=== PATIENT | male | born 1985 | race Caucasian/White ===

== ENCOUNTER 2019-12-10 11:42 | Emergency (ER) | payer OTHER ==
[2019-12-10] MEDS ORDERED: MORPHINE SULFATE 4 MG/ML SYRINGE IV STA (12:45)
[2019-12-10] MEDS ORDERED: KETOROLAC 30 MG/ML 1 ML VIAL IVP STA (12:45)
[2019-12-10] MEDS ORDERED: ONDANSETRON 4 MG/2 ML VIAL IVP STA (12:45)
[2019-12-10] MEDS ORDERED: SODIUM CHLORIDE 0.9% 1,000 ML IV STA ×2 (12:45)
[2019-12-10 13:08] LABS: Appearance,Urine Clear (Clear); Bilirubin,Urine Negative (Negative); Blood,Urine Moderate (Negative); Color,Urine Yellow; Glucose,Urine (UA) Negative (Negative); Ketones,Urine Negative (Negative); Leukocyte Esterase,Urine Negative (Negative); Mucus,Urine Rare /hpf; Nitrite,Urine Negative (Negative); Protein,Urine Negative (Negative); RBC,Urine 19 /hpf (0-5); Specific Gravity,Urine 1.021 (1.001-1.035); Squamous Epithelial Cell,Urine 1 /hpf (0-4); Urobilinogen,Urine <2.0 mg/dL (<2.0); WBC,Urine 1 /hpf (0-5)
[2019-12-10 13:09] LABS: Basophils % (A) 0 %; Eosinophils % (A) 0 %; HCT 46.2 % (39.0-53.0); HGB 15.3 gm/dL (13.0-17.5); Lymphocytes % (A) 12 %; MCH 28.4 pg (25.0-35.0); Mean Platelet Volume 7.5; Monocytes # (A) 0.3 k/uL (0-1.0); Monocytes % (A) 3 %; Neutrophils # (A) 6.9 k/uL (1.3-7.7); Neutrophils % (A) 83 %; Platelet Count 216 k/uL (150-450); RBC 5.37 m/uL (4.30-5.90); RDW 13.3 % (11.5-15.5); WBC 8.2 k/uL (3.8-10.6)
[2019-12-10 13:13] LABS: INR 0.9 (<1.2); Partial Thromboplastin Time 24.3 sec (22.0-30.0); Prothrombin Time 9.6 sec (9.0-12.0)
[2019-12-10 13:17] LABS: ALT 50 U/L (4-49); AST 35 U/L (17-59); African American GFR (CKD) >90 (>60 ml/min/1.73 sqM); Albumin 4.6 g/dL (3.5-5.0); Alkaline Phosphatase 98 U/L (38-126); Amylase 67 U/L (30-110); Anion Gap 7 mmol/L; Blood Urea Nitrogen 13 mg/dL (9-20); Calcium 9.4 mg/dL (8.4-10.2); Carbon Dioxide 28 mmol/L (22-30); Chloride 102 mmol/L (98-107); Glucose 111 mg/dL (74-99); Non-African American GFR(CKD) >90 (>60 ml/min/1.73 sqM); Potassium 5.1 mmol/L (3.5-5.1); Sodium 137 mmol/L (137-145); Total Bilirubin 0.5 mg/dL (0.2-1.3); Total Protein 7.7 g/dL (6.3-8.2)
--- NOTE | 2019-12-10 13:21 | ED ---
Abdominal Pain HPI - General Chief Complaint: Abdominal Pain Stated Complaint: poss kidney stone Time Seen by Provider: 12/10/19 12:38 Source: patient, RN notes reviewed, old records reviewed Mode of arrival: ambulatory Limitations: no limitations - History of Present Illness Initial Comments: 34-year-old male presents emergency department today for evaluation for concern for right-sided flank pain, frequent urination and pain for the past day. Sympt oms started this morning when getting to work. He's had a history of kidney stones in the past. Patient denies any recent fever, chills, shortness of breath, chest pain, back pain, abdominal pain, nausea vomiting, numbness or tingling, dysuria or hematuria, constipation or diarrhea, headaches or visual changes, or any other current symptoms. - Related Data Previous Rx's Medication Instructions Recorded Acetaminophen-Codeine 300-30mg 1 tab PO Q6H PRN 3 Days #12 tablet 12/10/19 [Tylenol w/codeine #3] Ketorolac [Toradol] 10 mg PO Q6HR #12 tab 12/10/19 Ondansetron [Zofran ODT] 4 mg PO Q8HR #12 tab 12/10/19 Tamsulosin [Flomax] 0.4 mg PO DAILY #7 cap 12/10/19 Allergies Allergy/AdvReac Type Severity Reaction Status Date / Time No Known Allergies Allergy Verified 12/10/19 11:56 Review of Systems ROS Statement: Those systems with pertinent positive or pertinent negative responses have been documented in the HPI. ROS Other: All systems not noted in ROS Statement are negative. Past Medical History Past Medical History: No Reported History History of Any Multi-Drug Resistant Organisms: None Reported Additional Past Surgical History / Comment(s): wisdom teeth Past Psychological History: No Psychological Hx Reported Smoking Status: Never smoker Past Alcohol Use History: Occasional Past Drug Use History: None Reported General Exam - General Exam Comments Initial Comments: 34-year-old male. Alert and oriented. No Distress. Limitations: no limitations Head exam: Present: atraumatic, normocephalic, normal inspection Eye exam: Present: normal appearance, PERRL, EOMI. Absent: scleral icterus, conjunctival injection, periorbital swelling ENT exam: Present: normal exam Neck exam: Present: normal inspection. Absent: tenderness, meningismus, lymphadenopathy Respiratory exam: Present: normal lung sounds bilaterally. Absent: respiratory distress, wheezes, rales, rhonchi, stridor Cardiovascular Exam: Present: regular rate, normal rhythm, normal heart sounds. Absent: systolic murmur, diastolic murmur, rubs, gallop, clicks GI/Abdominal exam: Present: soft, tenderness (RLQ tenderness), normal bowel sounds. Absent: distended, guarding, rebound, rigid Extremities exam: Present: normal inspection, full ROM, normal capillary refill. Absent: tenderness, pedal edema, joint swelling, calf tenderness Back exam: Present: normal inspection Neurological exam: Present: alert, oriented X3, CN II-XII intact Course Vital Signs 12/10/19 12/10/19 11:53 13:57 Temperature 98.3 F 98.0 F Pulse Rate 73 82 Respiratory 18 16 Rate Blood Pressure 162/94 136/71 O2 Sat by Pulse 100 95 Oximetry Medical Decision Making - Medical Decision Making 34-year-old male. No distress, presents today for concern for right lower abdominal pain. Symptoms started this morning. Patient has concern for possible kidney stone. Lab work was reviewed. Urinalysis does show hematuria. Patient had CT abdomen and pelvis which shows a 3 mm stone in the left ureter 2 cm proximal to the left UPJ. Patient was advised that Patient will be able to pass this on his own. Discharging with Flomax Toradol, Tylenol codeine and Zofran. Discussed appropriate follow-up with urology. No sign of infection at this time. - Lab Data Result diagrams: 12/10/19 12:13 12/10/19 12:13 Lab Results 12/10/19 12/10/19 12/10/19 Range/Units 11:56 12:13 12:13 WBC 8.2 (3.8-10.6) k/uL RBC 5.37 (4.30-5.90) m/uL Hgb 15.3 (13.0-17.5) gm/dL Hct 46.2 (39.0-53.0) % MCV 86.0 (80.0-100.0) fL MCH 28.4 (25.0-35.0) pg MCHC 33.0 (31.0-37.0) g/dL RDW 13.3 (11.5-15.5) % Plt Count 216 (150-450) k/uL Neutrophils % 83 % Lymphocytes % 12 % Monocytes % 3 % Eosinophils % 0 % Basophils % 0 % Neutrophils # 6.9 (1.3-7.7) k/uL Lymphocytes # 1.0 (1.0-4.8) k/uL Monocytes # 0.3 (0-1.0) k/uL Eosinophils # 0.0 (0-0.7) k/uL Basophils # 0.0 (0-0.2) k/uL PT (9.0-12.0) sec INR (<1.2) APTT (22.0-30.0) sec Sodium 137 (137-145) mmol/L Potassium 5.1 (3.5-5.1) mmol/L Chloride 102 (98-107) mmol/L Carbon Dioxide 28 (22-30) mmol/L Anion Gap 7 mmol/L BUN 13 (9-20) mg/dL Creatinine 0.74 (0.66-1.25) mg/dL Est GFR (CKD-EPI)AfAm >90 (>60 ml/min/1.73 sqM) Est GFR (CKD-EPI)NonAf >90 (>60 ml/min/1.73 sqM) Glucose 111 H (74-99) mg/dL Calcium 9.4 (8.4-10.2) mg/dL Total Bilirubin 0.5 (0.2-1.3) mg/dL AST 35 (17-59) U/L ALT 50 H (4-49) U/L Alkaline Phosphatase 98 (38-126) U/L Total Protein 7.7 (6.3-8.2) g/dL Albumin 4.6 (3.5-5.0) g/dL Amylase 67 (30-110) U/L Lipase 44 (23-300) U/L Urine Color Yellow Urine Appearance Clear (Clear) Urine pH 5.0 (5.0-8.0) Ur Specific [place] 1.021 (1.001-1.035) Urine Protein Negative (Negative) Urine Glucose (UA) Negative (Negative) Urine Ketones Negative (Negative) Urine Blood Moderate H (Negative) Urine Nitrite Negative (Negative) Urine Bilirubin Negative (Negative) Urine Urobilinogen <2.0 (<2.0) mg/dL Ur Leukocyte Esterase Negative (Negative) Urine RBC 19 H (0-5) /hpf Urine WBC 1 (0-5) /hpf Ur Squamous Epith Cells 1 (0-4) /hpf Urine Mucus Rare H (None) /hpf 12/10/19 Range/Units 12:13 WBC (3.8-10.6) k/uL RBC (4.30-5.90) m/uL Hgb (13.0-17.5) gm/dL Hct (39.0-53.0) % MCV (80.0-100.0) fL MCH (25.0-35.0) pg MCHC (31.0-37.0) g/dL RDW (11.5-15.5) % Plt Count (150-450) k/uL Neutrophils % % Lymphocytes % % Monocytes % % Eosinophils % % Basophils % % Neutrophils # (1.3-7.7) k/uL Lymphocytes # (1.0-4.8) k/uL Monocytes # (0-1.0) k/uL Eosinophils # (0-0.7) k/uL Basophils # (0-0.2) k/uL PT 9.6 (9.0-12.0) sec INR 0.9 (<1.2) APTT 24.3 (22.0-30.0) sec Sodium (137-145) mmol/L Potassium (3.5-5.1) mmol/L Chloride (98-107) mmol/L Carbon Dioxide (22-30) mmol/L Anion Gap mmol/L BUN (9-20) mg/dL Creatinine (0.66-1.25) mg/dL Est GFR (CKD-EPI)AfAm (>60 ml/min/1.73 sqM) Est GFR (CKD-EPI)NonAf (>60 ml/min/1.73 sqM) Glucose (74-99) mg/dL Calcium (8.4-10.2) mg/dL Total Bilirubin (0.2-1.3) mg/dL AST (17-59) U/L ALT (4-49) U/L Alkaline Phosphatase (38-126) U/L Total Protein (6.3-8.2) g/dL Albumin (3.5-5.0) g/dL Amylase (30-110) U/L Lipase (23-300) U/L Urine Color Urine Appearance (Clear) Urine pH (5.0-8.0) Ur Specific [place] (1.001-1.035) Urine Protein (Negative) Urine Glucose (UA) (Negative) Urine Ketones (Negative) Urine Blood (Negative) Urine Nitrite (Negative) Urine Bilirubin (Negative) Urine Urobilinogen (<2.0) mg/dL Ur Leukocyte Esterase (Negative) Urine RBC (0-5) /hpf Urine WBC (0-5) /hpf Ur Squamous Epith Cells (0-4) /hpf Urine Mucus (None) /hpf 12/10/19 13:32 EKG shows normal sinus rhythm with sinus arrhythmia, normal EKG. Ventricular rate 81 beats or minute. Intervals 134 ms. QRS duration is 90 ms. QT QTc is 366/425 ms. - Radiology Data Radiology results: report reviewed Disposition Clinical Impression: Right ureteral stone Disposition: HOME SELF-CARE Condition: Good Instructions (If sedation given, give patient instructions): Ureteral Stones (ED) Additional Instructions: Patient is advised to follow-up with primary care physician. Take meds as prescribed. Return to emergency department if any alarming signs or symptoms occur. Prescriptions: Tamsulosin [Flomax] 0.4 mg PO DAILY #7 cap Ketorolac [Toradol] 10 mg PO Q6HR #12 tab Acetaminophen-Codeine 300-30mg [Tylenol w/codeine #3] 1 tab PO Q6H PRN 3 Days #12 tablet PRN Reason: Pain Ondansetron [Zofran ODT] 4 mg PO Q8HR #12 tab Is patient prescribed a controlled substance at d/c from ED?: Yes If prescribed controlled substance>3 days was MAPS reviewed?: Prescribed <3 Days If opioid is for acute pain is fill amount 7 days or less?: Yes If Rx opioid, was Start Talking consent form obtained?: Yes Referrals: Magalie Mishra MD [Primary Care Provider] - 1-2 days Hoang Babb MD [STAFF PHYSICIAN] - 1-2 days Time of Disposition: 13:56
--- NOTE | 2019-12-10 13:46 | CT ---
EXAMINATION TYPE: CT abdomen pelvis wo con DATE OF EXAM: 12/10/2019 COMPARISON: None HISTORY: Rt abd pain CT DLP: 1684 mGycm Examination of the solid and hollow viscera is limited given the lack of contrast. FINDINGS: LUNG BASES: No evidence for nodule. No evidence for infiltrate. LIVER/GB: The gallbladder is unremarkable. No space-occupying hepatic lesion. PANCREAS: No pancreatic mass identified. No inflammatory process seen. SPLEEN: No evidence for splenomegaly. No intrasplenic lesions seen. ADRENALS: No adrenal nodules identified. No evidence for thickening. KIDNEYS: Distal right ureteral calculus measuring 3 mm approximately 1.8 cm from the UPJ. Mild right- sided hydronephrosis. No additional calculi identified at this time. BOWEL: Appendix has a normal appearance. No evidence of bowel obstruction. No inflammatory process. Lymph nodes: No evidence for adenopathy greater than 1 cm. Abdominal aorta: Atheromatous changes seen. No evidence for aneurysm. Genital organs: No significant abnormality. Other: No significant abnormality. IMPRESSION: Distal right ureteral calculus measuring 3 mm approximately 1.8 cm from the UPJ. Mild right-sided hyd ronephrosis.
[2019-12-10 14:22] VITALS: BP 111/73; PULSE 69; RESP 18; TEMP 98.2
== END 2019-12-10 14:22 | disposition home or self-care (01) ==
LOC: EC 11:42
DX: N20.1 Calculus of ureter (principal); Z53.8 Procedure and treatment not carried out for other reasons
CPT/HCPCS: 99285; 96374; 96375 ×2; 96361; 36415; 93005; 80053; 82150; 83690; 85025; 85610; 85730; 81001; 74176; J2270; J2405; J1885

== ENCOUNTER → 2020-01-17 | Outpatient (CLI) | payer OTHER ==
--- NOTE | 2020-01-17 12:16 | CONS ---
CONSULTATION DATE OF SERVICE: 01/17/2020. This 34-year-old gentleman had been evaluated at the sleep center for possible obstructive sleep apnea-hypopnea syndrome. HISTORY OF PRESENT ILLNESS/SLEEP-WAKE EVALUATION: Patient's usual sleep schedule on working days from 7 p.m. to 3 to 3:15 a.m.; on weekends from 11 p.m. until 10 to 10:15 a.m. No problems with falling asleep, although he has TV set in bedroom. He sleeps in different positions with his . According to her, he snores. He wakes up sometimes with nocturia. No witnessed episodes of stopped breathing during sleep. Positive history of sleep talking during the night, sweating, heartburn. In the morning, patient wakes up tired, has difficulties to pay attention, has problems with the memory. [place] Sleepiness Scale slightly increased to 10. No history of hypnagogic hallucinations, sleep paralysis or cataplexy. PAST MEDICAL HISTORY: Positive for gout. ALLERGIES: Allergic to SHELLFISH. PAST SURGICAL HISTORY: Assonet tooth removed. SOCIAL HISTORY: Positive for smoking in the past, quit 8 years ago. Alcohol consumption rarely. FAMILY HISTORY: Hypertension, hyperlipidemia, snoring. REVIEW OF SYSTEMS: Snoring, sometimes awakenings from sleep, episodes of tiredness and sleepiness during the day. PHYSICAL EXAMINATION: During physical examination, gentleman without distress. VITAL SIGNS: BP 122/73, HR 90, RR 15, height 5 feet 7-1/2 inches, weight 284.4 pounds, body mass index 43.8, temperature 98.6, oxygen saturation at room air 96%. HEENT: PERRLA, EOMI. Oropharynx low position of soft palate, Mallampati 3. NECK: Wide neck 18-1/3 inches in circumference. LUNGS: Clear to percussion and to auscultation. Good air exchange. No wheezing or rhonchi. HEART: S1, S2 regular. No murmurs, gallops, or rubs. ABDOMEN: Obese. EXTREMITIES: No clubbing or cyanosis. MAP COLORER: Awake, alert, and oriented X3. Cranial nerves 2 to 7 intact. There is no fasciculation or atrophy. noted. No focal deficits observed. IMPRESSION: 1. Snoring, occasional awakenings from sleep with nocturia, low position of soft palate, Mallampati 3, wide neck, symptoms of tiredness and sleepiness. [place] Sleepiness Scale is 10. Obstructive sleep apnea-hypopnea syndrome. 2. Obesity, body mass index 43.8. 3. Gout. 4. Allergy to SHELLFISH. 5. 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 PLAN: 1. Polysomnography for evaluation of patient's breathing during sleep. 2. CPAP/BiPAP titration if sleep study confirms obstructive sleep apnea-hypopnea syndrome. 3. Preferable position during sleep on the side. 4. No driving if patient feels any sleepiness. 5. I will see patient for follow up visit to explain results of testing and following plan. Thank you very much for referring this patient for consultation. Sincerely, Obey Devi MD, PhD, FAASM Diplomat of [employer] [employer] [facility] MMODL / AMEN: [id number] /
== END | disposition home or self-care (01) ==
LOC: SLEEP 10:27
PROVIDERS: ATTEND Internal Medicine
DX: G47.33 Obstructive sleep apnea (adult) (pediatric) (principal); M10.9 Gout, unspecified; E66.9 Obesity, unspecified; R53.83 Other fatigue; Z68.41 Body mass index [BMI] 40.0-44.9, adult; Z91.013 Allergy to seafood; Z87.891 Personal history of nicotine dependence
CPT/HCPCS: 99211